=== PATIENT | male | born 1965 | race Caucasian/White ===

== ENCOUNTER 2017-10-14 12:35 | Day surgery (SDC) | payer BC ==
[~2017-10-14] VITALS: Ht 182.9 cm; Wt 122.5 kg
[~2017-10-14 12:35] MED LIST: ALLOPURINOL100 MG PO; ASPIR 8181 M1 PO; GRALISE1 EACH PO; METFORMIN HCL500 MG PO; ONGLYZA5 MG PO
[2017-10-14 15:35] LABS: CSF PROTEIN 104 mg/dL (15-45)
[2017-10-14 15:40] LABS: GLUCOSE, CSF 92 mg/dL (40-80)
[2017-10-14 16:15] LABS: APPEARANCE CLEAR/COLORLESS; CSF TUBE NUMBER TUBE #1; RED CELL COUNT 87 /MM^3 (0-1); WHITE CELL COUNT 11 /MM^3 (0-5)
[2017-10-14 16:40] LABS: CSF EOSINOPHILS 0 % (0-25); MONONUCLEAR WBC'S 100 % (50-90); POLYNUCLEAR WBC'S 0 % (0-3); SPINAL FLD COMMENT RARE MACROPHAGES
[2017-10-14 19:32] LABS: APPEARANCE (RECHECK) CLEAR/COLORLESS; CSF TUBE NUMBER (RECHECK) TUBE #4; RED CELL COUNT (RECHECK) 0 /MM^3 (0-1)
[2017-10-16 21:38] LABS: Albumin, CSF 62.5 mg/dL (8.0-42.0); Albumin, Serum 4.3 g/dL (3.5-4.9); IgG Index, CSF 1.87 index (<0.66); IgG, CSF 20.4 mg/dL (0.8-7.7); IgG, Serum 752 mg/dL (694-1618)
== END 2017-10-14 14:55 | disposition home or self-care (01) ==
LOC: PAIN 12:35 → SDC 13:30 → PAIN 14:55
PROVIDERS: Anesthesiology Pain Medicine; Specialist
DX: M54.81 Occipital neuralgia (principal); G35 Multiple sclerosis; M54.2 Cervicalgia; I10 Essential (primary) hypertension; E11.9 Type 2 diabetes mellitus without complications; Z79.82 Long term (current) use of aspirin; Z79.84 Long term (current) use of oral hypoglycemic drugs
CPT/HCPCS: 82945; 82948; 83873 90; 83916 90; 84157; 89051; J2250; J3010